=== PATIENT | male | born 1965 ===

== ENCOUNTER 2018-02-22 08:39 | Day surgery (SDC) | payer BC ==
[2018-02-22] MEDS ORDERED: Lactated Ringer's 500 ML IV ONE (10:51)
[2018-02-22] MEDS ORDERED: Propofol 10 mg/ml Inj (20 ML) ONE (12:40)
[2018-02-22 13:17] VITALS: TEMP 97; O2SAT 99
[2018-02-22 13:31] VITALS: BP 105/67; PULSE 55; RESP 15
== END 2018-02-22 14:53 | disposition home or self-care (01) ==
LOC: H.ENDO 08:39
PROVIDERS: ATTEND Internal Medicine Gastroenterology
DX: R10.84 Generalized abdominal pain (principal); E78.5 Hyperlipidemia, unspecified; I10 Essential (primary) hypertension
CPT/HCPCS: 45378; J2001; J2704; J7120